=== PATIENT | female | born 1965 | race Caucasian/White ===

== ENCOUNTER 2017-09-13 12:22 | Inpatient (IN) | payer MEDICAID ==
[2017-09-13] MEDS ORDERED: Sodium Chloride 0.9% 1,000 ML IV ONE (13:01)
--- NOTE | 2017-09-13 13:08 | ED Physician Chart ---
ED Chief Complaint/HPI - Patient Information Date Seen:: 09/13/17 Time Seen:: 12:40 Chief Complaint:: Abdominal Pain History of Present Illness:: onset x 5 days of intermittent, diffuse, crampy abdominal pain and flank pain; pt admits to direct blow type trauma 5 days [employer]; pt denies LOC, ALOC, AMS, H/As , S/T, neck pain, visual or gait changes, weakness, dizziness, vertigo, paresthesias, H/As, cough, C/P, SOB, A/N/V/D/C, VB, VD, fever, chills, or urinary s/s; pt is eating and urinating well; pt last urinated one hour [employer] Allergies:: Allergies Allergy/AdvReac Type Severity Reaction Status Date / Time No Known Allergies Allergy Verified 09/13/17 12:39 Vitals:: Vital Signs - 8 hr 09/13/17 12:40 Temp 98 F HR 77 RR 16 BP 160/95 O2 Sat % 99 Historian:: Patient Review:: Nurse's Note Reviewed ED Review of Systems - Review of Systems General/Constitutional: No fever, No chills, No weight loss, No weakness, No diaphoresis, No edema, No loss of appetite Skin: No skin lesions, No rash, No bruising Head: No headache, No light-headedness Eyes: No loss of vision, No pain, No diplopia ENT: No earache, No nasal drainage, No sore throat, No tinnitus Neck: No neck pain, No swelling, No thyromegaly, No stiffness, No mass noted Cardio Vascular: No chest pain, No palpitations, No PND, No orthopnea, No edema Pulmonary: No SOB, No cough, No sputum, No wheezing GI: Nausea, Vomiting, Diarrhea, Pain, No melena, No hematochezia, No constipation, No hematemesis G/U: No dysuria, No frequency, No hematuria, No nacturia Driver Manager: No vaginal discharge, No abnormal vaginal bleed, No contraction Musculoskeletal: No bone or joint pain, No back pain, No muscle pain Endocrine: No polyuria, No polydipsia Psychiatric: No prior psych history, No depression, No anxiety, No suicidal ideation, No auditory hallucination, No visual hallucination Hematopoietic: No bruising, No lymphadenopathy Allergic/Immuno: No urticaria, No angioedema Neurological: No syncope, No focal symptoms, No weakness, No paresthesia, No headache, No seizure, No dizziness, No confusion, No vertigo ED Past Medical History - Past Medical History Obtainable: Yes Past Medical History: HTN, PUD/GERD Family History: HTN Social History: Non Smoker, No Alcohol, No Drug Use, Surgical History: None Psychiatricy History: None Medication: Reviewed Family Medical History - Family Member Mother History Unknown: Yes ED Physical Exam - Physical Examination General/Constitutional: Awake, Well-developed, well-nourished, Alert, No distress, GCS 15, Non-toxic appearing, Ambulatory Head: Atraumatic Eyes: Lids, conjuctiva normal, PERRL, EOMI Skin: Nl inspection, No rash, No skin lesions, No ecchymosis, Well hydrated, No lymphadenopathy ENMT: External ears, nose nl, TM canals nl, Nasal exam nl, Lips, teeth, gums nl , Oropharynx nl, Tonsils nl Neck: Nontender, Full ROM w/o pain, No JVD, No nuchal rigidity, No bruit, No mass, No stridor Other Neck comments:: supple; no meningeal signs; no cervical tenderness; no bruits Respiratory: Nl effort/Exclusion, Clear to Auscultation, No Wheeze/Rhonchi/Rales Cardio Vascular: RRR, No murmur, gallop, rubs, NL S1 S2, Carotid/Femoral/Distal pulses equal bilaterally GI: No organomegaly, No hernia, Normal BS's, Nondistended, No McBurney tenderness, Rectum exam nl Other GI comments:: + diffuse tenderness; + Mass : No CVA tenderness Extremities: No tenderness or effusion, Full ROM, normal strength in all extremities, No edema, Normal digits & nails Other Extremities comments:: Left Wrist and Left Hand tenderness; no loss of ROMs; no ligament instability or laxity; good motor, tendon, and sensory functions; good NV functions Neuro/Psych: Alert/oriented, DTR's symmetric, Normal sensory exam, Normal motor strength, Judgement/insight normal, Mood normal, Normal gait, No focal deficits Misc: Normal back, No paraspinal tenderness ED Labs/Radiology/EKG Results - Lab Results Comments:: U/A: + WBCs; RBCs; Trace Blood; + Bacteria - Radiology Results Comments:: + Abdominal/Pelvic Mass - EKG Interpretations EKG Time:: 13:05 Rate & Rhythm: 66; NSR Comments:: non-specific st-t changes ED Septic Shock - . Is Septic Shock (SBP<90, OR Lactate>4 mmol\L) present?: No - <6hrs of presentation: Vital Signs: Vital Signs - 8 hr //18 12:40 Temp 98 F HR 77 RR 16 BP 160/95 O2 Sat % 99 ED Reassessment (Disposition) - Reassessment Reassessment Condition:: Improved - Diagnosis Diagnosis:: Dx: Hematuria; UTI; Abdominal Pain, Flank Pain; Nephrolithiasis; Abdominal/ Pelvic Mass - Aftercare/Follow up Instructions Aftercare/Follow-Up Instructions:: Counseled pt regarding lab results/diagnosis & need follow up, Counseled pt & family regarding lab results/diagnosis & need follow up - Patient Disposition Discharge/Transfer:: Acute Care w/in this hosp Accepting Physician:: Dr. Maldonado Time Called:: 1430 Time Responded:: 14:30 Admitted to:: Med/Surg Spoke to:: Dr. Maldonado Admitting Medical Physician:: Dr. Maldonado Condition at Disposition:: Stable, Improved
[2017-09-13 13:23] LABS: % BASOPHILS 0.5 % (0.0-2.0); % EOSINOPHILS 4.8 % (0.0-5.0); % LYMPHOCYTES 31.2 % (20.0-50.0); % MONOCYTES 6.6 % (2.0-10.0); % NEUTROPHILS 56.9 % (40.0-80.0); EOSINOPHILE ABSOLUTE 0.2 Th/cmm (0.1-0.4); HEMATOCRIT 39.4 % (41.0-60); HEMOGLOBIN 13.3 gm/dL (12-16); LYMPHOCYTE ABSOLUTE 1.6 Th/cmm (1.5-3.0); MEAN CORPUSCULAR HEMOGLOBIN 28.7 pg (27.0-31.0); MEAN CORPUSCULAR HGB CONC 33.8 pg (28.0-36.0); MEAN PLATELET VOLUME 8.8 fl; MONOCYTE ABSOLUTE 0.3 Th/cmm (0.3-1.0); NEUTROPHILE ABSOLUTE 3.1 Th/cmm (1.8-8.0); PLATELET COUNT 253 Th/cmm (150-400); RED BLOOD COUNT 4.63 Mil/cmm (3.80-5.10); RED CELL DISTRIBUTION WIDTH 12.7 % (11.5-20.0); WHITE BLOOD COUNT 5.2 Th/cmm (4.8-10.8)
[2017-09-13 13:30] LABS: INR 0.91 (0.5-1.4); PROTHROMBIN TIME (TEST) 9.5 SECONDS (9.5-11.5)
[2017-09-13 13:37] LABS: ALB/GLOB RATIO 1.2 (1.0-1.8); ALBUMIN 4.4 gm/dL (3.7-5.3); ALKALINE PHOSPHATASE 82 U/L (34-104); ANION GAP 9.6 (7.0-16.0); BILIRUBIN,TOTAL 0.4 mg/dL (0.3-1.0); BUN - UREA NITROGEN 13 mg/dL (7-25); CALCIUM SERUM 10.3 mg/dL (8.6-10.3); CHLORIDE 101 mEq/L (98-107); CHOLESTEROL 219 mg/dL (<200); CREATININE - SERUM 0.6 mg/dL (0.6-1.2); CREATININE KINASE 93 U/L (30-223); GFR AFRICAN-AMERICAN > 60.0 ml/min (>90); GFR NON AFRICAN-AMERICAN > 60.0 ml/min; GLUCOSE 94 mg/dL (70-105); HDL -HIGH DENSITY LIPOPROTEIN 46 mg/dL (23-92); POTASSIUM SERUM 3.6 mEq/L (3.5-5.1); SGOT 17 U/L (13-39); SGPT/ALT 20 U/L (7-52); SODIUM SERUM 136 mEq/L (136-145); TRIGLYCERIDES 240 mg/dL (<150)
[2017-09-13 13:38] LABS: AMYLASE SERUM 47 U/L (29-103); LIPASE 68 U/L (11-82)
[2017-09-13 13:48] LABS: URINE MICROSCOPIC INDICATED? YES; URINE SOURCE CLEAN C
[2017-09-13 13:56] LABS: URINE BILIRUBIN NEGATIVE (NEGATIVE); URINE BLOOD TRACE (NEGATIVE); URINE GLUCOSE (UA) NEGATIVE (NEGATIVE); URINE KETONE NEGATIVE (NEGATIVE); URINE LEUKOCYTE ESTERASE NEGATIVE (NEGATIVE); URINE NITRATE NEGATIVE (NEGATIVE); URINE PH 5.5 (4.6 - 8.0); URINE PROTEIN NEGATIVE (NEGATIVE); URINE UROBILINOGEN 0.2 E.U./dL (0.2 - 1.0)
[2017-09-13 14:00] LABS: URINE CLARITY CLEAR (CLEAR); URINE COLOR YELLOW
[2017-09-13 14:06] LABS: URINE EPITHELIAL CELLS MODERATE /lpf (FEW); URINE RBC 0-2 /hpf (0-5)
[2017-09-13 14:07] LABS: URINE BACTERIA FEW /hpf (NONE SEEN)
[2017-09-13] MEDS ORDERED: cefTRIAXone 1 GM in Sodium Chloride 0.9% 50 ML IV ONE (14:56)
[2017-09-13] MEDS ORDERED: Morphine Sulfate 2 mg/mL 1mL Syr IVP PRN (19:27)
[2017-09-13 20:51] LABS: INR 0.92 (0.5-1.4); PROTHROMBIN TIME (TEST) 9.6 SECONDS (9.5-11.5)
[2017-09-13] MEDS ORDERED: NITROGLYCERIN OINT 2% 1 INCH PACKET TP ONE (20:53)
[2017-09-13] MEDS: NITROGLYCERIN OINT 2% 1 INCH PACKET TP SCH (20:55)
[2017-09-14] MEDS: D5-0.45NS 1,000 ML IV SCH ×2 (00:14→15:11)
[2017-09-14] MEDS: Ampicillin Sodium/Sulbactam 3 GM in Sodium Chloride 0.9% 100 ML IV SCH ×2 (02:21→06:59)
[2017-09-14] MEDS: NITROGLYCERIN OINT 2% 1 INCH PACKET TP SCH ×2 (02:22→06:56)
[2017-09-14 05:54] LABS: % BASOPHILS 0.7 % (0.0-2.0); % EOSINOPHILS 5.8 % (0.0-5.0); % LYMPHOCYTES 25.3 % (20.0-50.0); % MONOCYTES 7.5 % (2.0-10.0); % NEUTROPHILS 60.7 % (40.0-80.0); EOSINOPHILE ABSOLUTE 0.3 Th/cmm (0.1-0.4); HEMATOCRIT 38.5 % (41.0-60); HEMOGLOBIN 12.9 gm/dL (12-16); LYMPHOCYTE ABSOLUTE 1.2 Th/cmm (1.5-3.0); MEAN CELL VOLUME 86.4 fl (81-100); MEAN CORPUSCULAR HEMOGLOBIN 28.8 pg (27.0-31.0); MEAN CORPUSCULAR HGB CONC 33.4 pg (28.0-36.0); MEAN PLATELET VOLUME 9.2 fl; MONOCYTE ABSOLUTE 0.4 Th/cmm (0.3-1.0); PLATELET COUNT 222 Th/cmm (150-400); RED BLOOD COUNT 4.46 Mil/cmm (3.80-5.10); RED CELL DISTRIBUTION WIDTH 12.7 % (11.5-20.0); WHITE BLOOD COUNT 4.9 Th/cmm (4.8-10.8)
[2017-09-14 06:09] LABS: ALB/GLOB RATIO 1.2 (1.0-1.8); ALBUMIN 3.8 gm/dL (3.7-5.3); ALKALINE PHOSPHATASE 70 U/L (34-104); ANION GAP 10.7 (7.0-16.0); BILIRUBIN,TOTAL 0.3 mg/dL (0.3-1.0); BUN - UREA NITROGEN 17 mg/dL (7-25); CALCIUM SERUM 9.9 mg/dL (8.6-10.3); CARBON DIOXIDE 26.7 mEq/L (21.0-31.0); CHLORIDE 103 mEq/L (98-107); CREATININE - SERUM 0.6 mg/dL (0.6-1.2); GFR AFRICAN-AMERICAN > 60.0 ml/min (>90); GFR NON AFRICAN-AMERICAN > 60.0 ml/min; GLUCOSE 133 mg/dL (70-105); POTASSIUM SERUM 3.4 mEq/L (3.5-5.1); SGOT 15 U/L (13-39); SGPT/ALT 17 U/L (7-52); SODIUM SERUM 137 mEq/L (136-145)
--- NOTE | 2017-09-14 08:48 | Diagnostic Imaging Report ---
CT scan of the chest without intravenous contrast History: Shortness of breath Total DLP equals 255 CTDI equals 6.8 Axial sections were obtained from a level above the clavicles down to a level below the diaphragm. Exam the mediastinum demonstrates preservation of normal fat planes about the major vascular landmarks. No abnormal masses. Adenopathy is difficult to appreciated due to lack of contrast material. Bony thorax is intact. Small, 3 mm granuloma is noted in the left midlung peripherally No abnormal focal pulmonary parenchymal masses or nodules are seen. The hilar regions appear normal. No pleural effusions are seen. Impression: No acute abnormalities If clinically indicated CT examination with contrast might be helpful.
--- NOTE | 2017-09-14 08:51 | Diagnostic Imaging Report ---
Exam: CT examination abdomen pelvis HISTORY: Abdominal pain and hematuria. Total DLP equals 645 CTDI equals 12.3 Findings: Multiple contiguous thin section of the abdomen pelvis obtained from lower thorax to pubic symphysis without the administration of oral or intravenous contrast material. No prior studies available for comparison. The study demonstrates normal aeration of lung parenchyma the bases. The liver and spleen are normal. The adrenal glands intact. The gallbladder is normal. The pancreas is normal. The kidneys demonstrate no evidence of obstructive uropathy. There is evidence for nonobstructing calculi in left kidney. No free fluid visualized. The appendix is normal. There is evidence for enlarged uterus fibroid infiltration cannot be excluded. The soft tissue inferior to uterus might represent uterine mass clinical correlation ultrasound examination recommended. There is no evidence of diverticulitis. The bony structures demonstrate no evidence of lytic or blastic changes. IMPRESSION: Nonobstructing left renal calculi. Enlarged inhomogeneous uterus with the question of a ill-defined soft tissue mass in the cul-de-sac, clinical correlation ultrasound summation recommended.
--- NOTE | 2017-09-14 08:53 | Diagnostic Imaging Report ---
Exam: Ultrasound examination of the pelvis HISTORY: Pelvic mass. Findings: Real-time ultrasound examination of the pelvis was performed multiple planes utilizing transvaginal technique. The study demonstrates a uterus measuring 9.0 x 4.2 x 5.6 cm diameter. There is evidence for ill-defined complex mass posterior to uterus extending inferiorly measuring 7.2 x 4.4 x 4.4 cm. No free fluid is noted cul-de-sac. Adnexa is normal the ovaries intact. Right ovary measures 2.3 x 2 x 2.1 m diameter. Left ordered measures 2.3 x 1.7 x 2 cm diameter. Endometrial thickness is 6 mm IMPRESSION 1. Complex pleural defined mass posterior to uterus measuring 7.2 x 4.4 x 4.4 cm. Clinical correlation direct visualization is recommended.
[2017-09-14] MEDS ORDERED: Enoxaparin 30 mg/0.3 mL 0.3mL Syr SUBQ SCH (09:00)
--- NOTE | 2017-09-14 09:11 | Diagnostic Imaging Report ---
Left wrist 3 views Indication: Trauma Comparison: Left hand x-rays the same day Findings: There is a slightly comminuted fracture involving the base of the fifth metacarpal with probable extension into the articular surface. No evidence of dislocation. Mild surrounding soft tissue swelling is noted. Impression: Slightly comminuted fracture along the base of the fifth metacarpal with probable extension to the proximal articular surface. Mild angulation is also noted.
--- NOTE | 2017-09-14 09:12 | Diagnostic Imaging Report ---
Left hand 3 views Indication: Trauma Comparison: Left wrist x-rays the same day Findings: There is a slightly comminuted fracture involving the base of the fifth metacarpal with probable extension into the articular surface. No evidence of dislocation. Mild surrounding soft tissue swelling is noted. Impression: Slightly comminuted and mildly displaced fracture along the base of the fifth metacarpal with probable extension to the proximal articular surface. Mild angulation is also noted.
[2017-09-14] MEDS ORDERED: Potassium Chloride 20 mEq ER Tab PO ONE (10:54)
--- NOTE | 2017-09-14 10:54 | Consultation ---
DATE OF CONSULTATION: 09/14/2017 SURGICAL CONSULT REFERRING PHYSICIAN: Dr. Maldonado. REASON FOR CONSULTATION: Abdominal pain. Thank you for referring this patient to me. HISTORY OF PRESENT ILLNESS: This is a 52-year-old female who claims she has been having abdominal pain in the lower abdomen for the last several years. She denied any dysmenorrhea. The patient speaks [place] and information is rather sketchy. Laboratory studies, however, are essentially normal. CT of the chest was done (reason?) and this is essentially unremarkable. PHYSICAL EXAMINATION: Now, the patient does not appear to be septic nor in pain. Pelvic mass is suspected. No CT scan of the abdomen or pelvis has been done and we will order this. A REAL ESTATE DEVELOPER consultation is in order, if the pelvic mass was confirmed. Unfortunately, this facility does not have pipe smoking machine offbearer on the staff. We will likely have to refer patient out, if a pelvic mass is confirmed. We will follow up with you. Thank you Dr. Richey. [facility]# [id number]
--- NOTE | 2017-09-14 11:50 | Consultation ---
DATE OF CONSULTATION: 09/14/2017 HEMATOLOGY ONCOLOGY CONSULTATION REFERRING PHYSICIAN: Ferny Maldonado MD. REASON FOR CONSULTATION: Pelvic mass. HISTORY OF PRESENT ILLNESS: The patient is a 52-year-old female who presented to the hospital with lower abdominal pain. She states that the pain has been going on for many years associated with difficulty in the urination and defecation. The patient was seen and evaluated by [facility] for multiple times. Apparently, she underwent uterine biopsies multiple times and there was no malignancy found. PAST MEDICAL HISTORY: Hypertension. PAST SURGICAL HISTORY: None. FAMILY HISTORY: No malignancy. MEDICATIONS: Currently on Lovenox prophylaxis, Ativan, Lopressor, morphine, Ambien, Zofran and Unasyn. PHYSICAL EXAMINATION: GENERAL: On exam, she is awake, alert, oriented. VITAL SIGNS: Stable. NECK: Supple. No lymphadenopathy. CHEST: Good air entry. ABDOMEN: Soft. No masses. EXTREMITIES: Unremarkable. A CT scan of the abdomen and pelvis and chest were reviewed. Chest CT unremarkable, no abnormalities and CT scan of the abdomen shows enlarged uterus and a soft tissue complex mass in the cul-de-sac behind the uterus. LAB WORK: Chemistry panel normal blood count. Liver function is normal. Coagulation panel normal. ASSESSMENT: Complex mass behind the uterus in the cul-de-sac area seems to be chronic. The origin of the mass is unclear. Both ovaries are identified in the ultrasound with no abnormality and this mass could be primary peritoneal carcinomatosis or arising from the colon area or lymphadenopathy. If it is not accessible for biopsy by needle by radiologist and then surgical exploration will be required. Also, GI evaluation for colonoscopy and evaluation of the possible pathology in the colon would be required, given the long history of painful defecation. Thank you, Dr. Maldonado for the opportunity to participate in the care of this interesting case for you. JOB# [id number]
--- NOTE | 2017-09-14 12:42 | History & Physical ---
ADMIT DATE: 09/14/2017 PATIENT'S IDENTIFICATION: A 52-year-old female. CHIEF COMPLAINT: Abdominal pain. HISTORY OF PRESENT ILLNESS: A 52-year-old [place] female diagnosed with abdominal mass approximately 4 years ago, has been followed by [facility], but has not seen them recently, presented to Emergency Room for acute onset of crampy abdominal pain associated with nausea, but no vomiting, no diarrhea, no constipation, no hematuria, hematochezia, or melena. The patient was worked up in the Emergency Room, noted to have a retroperitoneal mass and now the patient is being admitted. PAST MEDICAL HISTORY: Remarkable for retroperitoneal mass. Remarkable for hypertension and gastroesophageal reflux disease. MEDICATIONS AT HOME: None. ALLERGIES: None. SOCIAL HISTORY: The patient lives with family. No smoking cigarette. No alcohol or drug use. FAMILY HISTORY: Remarkable for hypertension. REVIEW OF SYSTEMS: The patient's pain is currently minimum. Denies any chest pain, shortness of breath, palpitation, dizziness, nausea, vomiting, diarrhea, dysuria, hematuria, hematochezia, melena. No seizure or syncopal episode. PHYSICAL EXAMINATION: GENERAL: The patient is alert, awake, oriented, lying in the bed without any acute distress. VITAL SIGNS: Temperature 97, pulse is 74, respiratory rate 16, blood pressure 160/95. HEENT: Normocephalic, atraumatic. Extraocular muscles intact. Tongue was pink and coated. Multiple absent teeth noted. NECK: Supple, no JVD, no hepatojugular reflux. No lymphadenopathy, thyromegaly, or carotid bruit. HEART: Both heart sounds are regular. No S3, no S4, no murmurs. CHEST: Lung equal in expansion, no wheezing, no crackles. ABDOMEN: Soft. No guarding, no rigidity. Bowel sounds are present. No palpable mass. EXTREMITIES: No edema, no cyanosis, no clubbing. Peripheral pulses +2. No calf tenderness noted. NEUROLOGIC: Nonfocal. AVAILABLE DIAGNOSTIC DATA: CT scan of the abdomen and pelvis consistent with nonobstructing left renal calculi and enlarged inhomogeneous uterus with question of ill-defined soft tissue mass in the cul-de-sac. Chest CT scan was unremarkable. Pelvic ultrasound remarkable for complex pleural defined mass posterior to uterus measuring 7.2 x 4.4 x 4.4 cm noted. Chemistry panel within normal limit. CBC is within normal limit. Urinalysis is normal. test was negative. CLINICAL IMPRESSIONS: 1. Intermittent abdominal pain, most likely related to retroperitoneal mass, needs further evaluation. 2. Hypertension. 3. Left renal calculi accidental finding with normal urinalysis. PLAN: The patient has been admitted by me to Med/Surg floor. The patient has been seen by surgeon as well as medical oncologist and I did discuss with Oncology suggest that patient should be sent back to [facility] for further evaluation and management considering patient has complex mass. The patient needs surgical exploration. I have talked to the patient's family and patient as well about the patient is to go to [facility]. I do not see at this time any indications that patient needs immediate surgical intervention at this time. I will have social work therapist to look at the patient and make appropriate arrangements. Meanwhile, the patient will be given antihypertensive medication along with symptoms management as well. Care plan has been reviewed and discussed with patient's family as well as assigned nurse. JOB# [id number]
[2017-09-14] MEDS ORDERED: Acetaminophen 500 MG TAB PO PRN (18:10)
--- NOTE | 2017-09-15 10:15 | General Progress Note ---
Subjective - Review of Systems Service Date: 09/15/17 Events since last encounter: CT enlarged uterus need Gyne referral Objective - Results Result Diagrams: 09/14/17 05:10 09/14/17 05:10 Recent Labs: Laboratory Last Values WBC 4.9 Th/cmm (4.8-10.8) 09/14/17 05:10 RBC 4.46 Mil/cmm (3.80-5.10) 09/14/17 05:10 Hgb 12.9 gm/dL (12-16) 09/14/17 05:10 Hct 38.5 % (41.0-60) L 09/14/17 05:10 MCV 86.4 fl (81-100) 09/14/17 05:10 MCH 28.8 pg (27.0-31.0) 09/14/17 05:10 MCHC Differential 33.4 pg (28.0-36.0) 09/14/17 05:10 RDW 12.7 % (11.5-20.0) 09/14/17 05:10 Plt Count 222 Th/cmm (150-400) 09/14/17 05:10 MPV 9.2 fl 09/14/17 05:10 Neutrophils % 60.7 % (40.0-80.0) 09/14/17 05:10 Lymphocytes % 25.3 % (20.0-50.0) 09/14/17 05:10 Monocytes % 7.5 % (2.0-10.0) 09/14/17 05:10 Eosinophils % 5.8 % (0.0-5.0) H 09/14/17 05:10 Basophils % 0.7 % (0.0-2.0) 09/14/17 05:10 Plt Count 253 Th/cmm (150-750) 09/13/17 20:30 PT 9.6 SECONDS (9.5-11.5) 09/13/17 20:30 INR 0.92 (0.5-1.4) 09/13/17 20:30 PTT (Actin FS) 27.9 SECONDS (26.0-38.0) 09/13/17 20:30 Fibrinogen 262.0 mg/dL (200.0-400.0) 09/13/17 20:30 D-Dimer 293 ng/mL (100-400) 09/13/17 20:30 Sodium 137 mEq/L (136-145) 09/14/17 05:10 Potassium 3.4 mEq/L (3.5-5.1) L 09/14/17 05:10 Chloride 103 mEq/L (98-107) 09/14/17 05:10 Carbon Dioxide 26.7 mEq/L (21.0-31.0) 09/14/17 05:10 Anion Gap 10.7 (7.0-16.0) 09/14/17 05:10 BUN 17 mg/dL (7-25) 09/14/17 05:10 Creatinine 0.6 mg/dL (0.6-1.2) 09/14/17 05:10 Est GFR ( Amer) > 60.0 ml/min (>90) 09/14/17 05:10 Est GFR (Non-Af Amer) > 60.0 ml/min 09/14/17 05:10 BUN/Creatinine Ratio 28.3 09/14/17 05:10 Glucose 133 mg/dL (70-105) H 09/14/17 05:10 Calcium 9.9 mg/dL (8.6-10.3) 09/14/17 05:10 Total Bilirubin 0.3 mg/dL (0.3-1.0) 09/14/17 05:10 AST 15 U/L (13-39) 09/14/17 05:10 ALT 17 U/L (7-52) 09/14/17 05:10 Alkaline Phosphatase 70 U/L (34-104) 09/14/17 05:10 Lactate Dehydrogenase 111 U/L (140-271) L 09/13/17 13:10 Creatine Kinase 93 U/L (30-223) 09/13/17 13:10 Troponin I < 0.01 ng/mL (0.01-0.05) L 09/13/17 13:10 B-Natriuretic Peptide 5.5 pg/mL (5.0-100.0) 09/13/17 13:10 Total Protein 7.0 gm/dL (6.0-8.3) 09/14/17 05:10 Albumin 3.8 gm/dL (3.7-5.3) 09/14/17 05:10 Globulin 3.2 gm/dL 09/14/17 05:10 Albumin/Globulin Ratio 1.2 (1.0-1.8) 09/14/17 05:10 Triglycerides 240 mg/dL (<150) H 09/13/17 13:10 Cholesterol 219 mg/dL (<200) H 09/13/17 13:10 LDL Cholesterol Direct 143 mg/dL (75-193) 09/13/17 13:10 HDL Cholesterol 46 mg/dL (23-92) 09/13/17 13:10 Amylase 47 U/L (29-103) 09/13/17 13:10 Lipase 68 U/L (11-82) 09/13/17 13:10 Serum , Qual NEGATIVE (NEGATIVE) 09/13/17 13:10 Urine Source CLEAN C 09/13/17 12:45 Urine Color YELLOW 09/13/17 12:45 Urine Clarity CLEAR (CLEAR) 09/13/17 12:45 Urine pH 5.5 (4.6 - 8.0) 09/13/17 12:45 Ur Specific [place] 1.025 (1.005-1.030) 09/13/17 12:45 Urine Protein NEGATIVE mg/dL (NEGATIVE) 09/13/17 12:45 Urine Glucose (UA) NEGATIVE mg/dL (NEGATIVE) 09/13/17 12:45 Urine Ketones NEGATIVE mg/dL (NEGATIVE) 09/13/17 12:45 Urine Blood TRACE (NEGATIVE) 09/13/17 12:45 Urine Nitrate NEGATIVE (NEGATIVE) 09/13/17 12:45 Urine Bilirubin NEGATIVE (NEGATIVE) 09/13/17 12:45 Urine Urobilinogen 0.2 E.U./dL (0.2 - 1.0) 09/13/17 12:45 Ur Leukocyte Esterase NEGATIVE (NEGATIVE) 09/13/17 12:45 Urine RBC 0-2 /hpf (0-5) 09/13/17 12:45 Urine WBC 2-5 /hpf (0-5) 09/13/17 12:45 Ur Epithelial Cells MODERATE /lpf (FEW) 09/13/17 12:45 Urine Bacteria FEW /hpf (NONE SEEN) 09/13/17 12:45 - Physical Exam Vitals and I&O: Vital Signs Temp 98.0 F 09/15/17 08:05 Pulse 66 09/15/17 08:05 Resp 17 09/15/17 08:05 BP 189/104 09/15/17 08:05 Pulse Ox 95 09/15/17 08:05 Intake & Output 09/14/17 09/15/17 09/15/17 18:59 06:59 18:59 Intake Total 1950 550 Balance 1950 550 Weight (lbs) 81.647 kg 81.647 kg Intake: Intake, IV Amount 1100 Ampicillin Sodium/ 100 Sulbactam 3 gm In Sodium Chloride 0.9% 100 ml @ 100 mls/hr IV Q6HR CARLOS A Rx #:[id number] D5-0.45NS 1,000 ml @ 100 1000 mls/hr IV .Q10H CARLOS A Rx#: [id number] Oral 850 550 Other: # Voids 5 3 Active Medications: Current Medications Acetaminophen (Tylenol Extra Strength) 500 mg PO Q6H PRN PRN Reason: Pain (Mild) Stop: 11/13/17 18:09 Dextrose/Sodium Chloride (D5-0.45ns) 1,000 mls @ 100 mls/hr IV .Q10H CARLOS A Stop: 11/12/17 19:29 Last Admin: 09/14/17 15:11 Dose: 100 mls/hr Lorazepam (Ativan) 1 mg PO Q6H PRN; Protocol PRN Reason: Anxiety/Agitation Stop: 11/12/17 19:26 Last Admin: 09/15/17 02:19 Dose: 1 mg Morphine Sulfate (Morphine) 2 mg IVP Q4H PRN PRN Reason: Severe Pain Stop: 11/12/17 19:26 Ondansetron HCl (Zofran) 4 mg IVP Q6H PRN PRN Reason: Nausea / Vomiting Stop: 11/12/17 19:26 Zolpidem Tartrate (Ambien) 5 mg PO HS PRN PRN Reason: Insomnia Stop: 11/12/17 19:26
--- NOTE | 2017-09-15 11:27 | Progress Notes ---
DATE: 09/15/2017 SUBJECTIVE: The patient seen and examined. The patient sitting in the chair. Denies any chest pain, shortness of breath, palpitation, dizziness, nausea, vomiting, diarrhea, no abdominal pain today. PHYSICAL EXAMINATION: VITAL SIGNS: Temperature 98.0, pulse 66, respiratory rate 18, blood pressure 162/80. HEENT: No facial asymmetry. NECK: Supple, no JVD. HEART: Regular, no murmur. CHEST: Lung equal in expansion, no wheezing, no crackles. ABDOMEN: Soft. EXTREMITIES: No edema. NEUROLOGIC: Nonfocal compression. CLINICAL IMPRESSION: 1. Hypertension. 2. Soft tissue complex mass in the cul-de-sac area behind the uterus, workup to be done as an outpatient. 3. Degenerative joint disease. PLAN: The patient can be discharged to home and have outpatient followup with [facility]. Continue antihypertensive medicine as prescribed. The patient has understood the discharge instructions: The patient is discharged today. propulsion motor and generator repairer used. JOB# [id number]
== END 2017-09-15 11:50 | disposition home or self-care (01) | DRG 254 ==
LOC: ER 12:22 → MSI 20:20
PROVIDERS: ADMIT Internal Medicine; ATTEND Internal Medicine
DX: R19.09 Other intra-abdominal and pelvic swelling, mass and lump (principal); I10 Essential (primary) hypertension; N39.0 Urinary tract infection, site not specified; N20.0 Calculus of kidney; K21.9 Gastro-esophageal reflux disease without esophagitis; M19.90 Unspecified osteoarthritis, unspecified site; Z82.49 Family history of ischemic heart disease and other diseases of the circulatory system
CPT/HCPCS: 36415-UA; 71250-TC; 73110-TC-LT; 73130-TC-LT; 76856-TC; 80053-TC; 80061-TC; 81001-TC; 82150-TC; 82550-TC; 83615-TC; 83690-TC; 83880-TC; 84484-TC; 84703-TC; 85025-TC; 85049-TC; 85379-TC; 85384-TC; 85610-TC; 85730-TC; 87086-90; 93005; 94760; 96375; J0295; J0696; J1650; J1885; J7030; Z7610